=== PATIENT | male | born 1960 | race African-American/Black ===

== ENCOUNTER 2024-08-07 11:46 | Emergency (ER) | payer BC ==
[~2024-08-07] VITALS: Ht 152.4 cm; Wt 95.3 kg
[2024-08-07 11:52] VITALS: BP_SYST 152; PULSE 110; RESP 18; TEMP 98.2; O2SAT 100
[2024-08-07 13:07] LABS: BASOPHILS # (AUTO) 0.2 K/uL (0.0-0.2); BASOPHILS % (AUTO) 1.7 % (0.0-2.0); EOSINOPHILS # (AUTO) 0.2 K/uL (0.0-0.4); EOSINOPHILS % (AUTO) 1.2 % (0.0-4.0); HEMATOCRIT 28.1 % (36-54); HEMOGLOBIN 9.2 g/dL (14.0-18.0); LYMPHOCYTES # (AUTO) 1.3 K/uL (1.0-5.5); LYMPHOCYTES % (AUTO) 9.4 % (20.5-51.5); MEAN CORPUSCULAR HEMOGLOBIN 22 pg (27-31); MEAN CORPUSCULAR HGB CONC 33 % (32-36); MONOCYTES # (AUTO) 0.8 K/uL (0.0-1.0); MONOCYTES % (AUTO) 5.9 % (1.7-9.3); NEUTROPHILS # (AUTO) 11.3 K/uL (1.8-7.7); NEUTROPHILS % (AUTO) 81.8 % (40.0-70.0); PLATELET COUNT (AUTO) 352 K/uL (130-430); RED BLOOD CELL COUNT(AUTO) 4.16 MIL/uL (4.2-6.2); RED CELL DISTRIBUTION WIDTH 21.2 % (9.0-15.0); WHITE BLOOD COUNT (AUTO) 13.9 K/uL (4.8-10.8)
[2024-08-07 13:14] LABS: PROTHROMBIN TIME 10.4 SECS (9.5-12.5)
[2024-08-07 13:15] LABS: ALANINE AMINOTRANSFERASE 24 U/L (12-78); ANION GAP 10 (5-15); ASPARTATE AMINOTRANSFERASE 48 U/L (10-37); CALCIUM 9.1 mg/dL (8.4-11.0); CARBON DIOXIDE 27 mmol/L (23-29); CHLORIDE 98 mmol/L (98-107); CREATININE 1.16 mg/dL (0.55-1.30); GFR AFRICAN AMERICAN 82 mL/min (>90); GLUCOSE 87 mg/dL (74-106); POTASSIUM 3.3 mmol/L (3.5-5.1); SODIUM SERUM 135 mmol/L (136-145); TOTAL BILIRUBIN 0.2 mg/dL (0.0-1.0); TOTAL PROTEIN, SERUM 7.1 g/dL (6.4-8.3); UREA NITROGEN, BLOOD 19 mg/dL (8-21)
[2024-08-07 13:16] LABS: GFR NON AFRICAN-AMERICAN 68 mL/min (>90)
[2024-08-07 13:17] LABS: MEAN CORPUSCULAR VOLUME 68 fL (79.0-98.0)
[2024-08-07 13:18] LABS: BILIRUBIN,DIRECT 0.1 mg/dL (0.0-0.3); CREATINE KINASE, TOTAL 128 U/L (39-308)
[2024-08-07 13:23] LABS: ALCOHOL, BLOOD < 3 mg/dL (<10)
[2024-08-07 14:09] LABS: ANISOCYTOSIS 1+; HYPOCHROMASIA 1+
[2024-08-07] MEDS: NACL 0.9% 2,000 ML IV ONE (14:38)
[2024-08-07 14:46] LABS: ACETONE, SERUM NEGATIVE (NEGATIVE)
[2024-08-07 16:01] VITALS: BP_SYST 138; PULSE 99; RESP 18; TEMP 98.6; O2SAT 98
== END 2024-08-07 16:01 | disposition home or self-care (01) ==
LOC: SED 11:46
DX: R27.0 Ataxia, unspecified (principal); E87.20 Acidosis, unspecified
CPT/HCPCS: 99285; 96360; 70450; 71045; 80076; 80048; 82009; 82140; 82550; 85025; 85610; 85730; 84484; 36415; 93005; 82948; 83605; G0482; J7030